=== PATIENT | male | born 1995 | race Caucasian/White ===

== ENCOUNTER 2017-03-21 19:12 | Emergency (ER) | payer MEDICAID ==
[~2017-03-21] VITALS: Ht 185.4 cm; Wt 99.8 kg
[2017-03-21 19:23] VITALS: BP 147/91
[2017-03-21 20:46] LABS: Urine Bacteria NONE SEEN /hpf (None Seen); Urine Blood Negative /uL (Negative); Urine Specific Gravity 1.007 (1.001-1.035); Urine WBC <1 /hpf (0 - 3)
== END 2017-03-21 21:45 | disposition home or self-care (01) ==
LOC: ER 19:12
DX: M54.5 Low back pain (principal); M79.1 Myalgia
CPT/HCPCS: 81001